=== PATIENT | male | born 1990 | race Two or more races ===

== ENCOUNTER 2021-10-21 16:59 | Emergency (ER) | payer OTHER, SELFPAY ==
[2021-10-21 20:17] VITALS: BP 135/81; PULSE 74; RESP 18; TEMP 36.8; O2SAT 99; BMI 20.2
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
[2021-10-22] MEDS: Lidocaine 4 % Patch ADH..PATCH 1 PATCH TRANSDERMA (05:04)
[2021-10-22] MEDS: Ketorolac Tromethamine 30 MG/ML VIAL 15 MG IM (05:04)
[2021-10-22] MEDS: Acetaminophen 325 MG TABLET 975 MG PO (05:04)
== END 2021-10-22 05:21 | disposition home or self-care (01) ==
PROVIDERS: Emergency Provider Student in an Organized Health Care Education/Training Program
DX: M79.18 Myalgia, other site (principal); M62.838 Other muscle spasm
CPT/HCPCS: 96372; 99284; J1885